=== PATIENT | male | born 2000 | race Caucasian/White ===

== ENCOUNTER 2023-07-12 11:43 | Outpatient (CLI) | payer BC, SELFPAY ==
[2023-07-12 18:21] LABS: Alanine Aminotransferase 58 U/L (6-50); Albumin Level 4.7 g/dL (3.5-5.1); Alkaline Phosphatase 49 U/L (38-126); Anion Gap 8 mmol/L (8-16); Aspartate Amino Transferase 64 U/L (17-59); Bilirubin,Total 0.6 mg/dL (0.2-1.3); Blood Urea Nitrogen 15 mg/dL (9-20); Calcium 9.6 mg/dL (8.4-10.2); Carbon Dioxide 29 mmol/L (22-30); Chloride 104 mmol/L (98-107); Cholesterol 179 mg/dL (0-200); Estimated Glomerular Filt Rate > 60; Glucose 95 mg/dL (65-110); HDL Direct 47 mg/dL; Potassium 4.2 mmol/L (3.4-5.0); Sodium 141 mmol/L (137-145); Triglycerides 117 mg/dL (<150)
[2023-07-12 18:32] LABS: LDL Cholesterol Direct 104 mg/dL
== END 2023-07-12 11:44 | disposition home or self-care (01) ==
PROVIDERS: PCP Family Medicine; Visit Provider Family Medicine
DX: E78.2 Mixed hyperlipidemia (principal); Z13.228 Encounter for screening for other metabolic disorders
CPT/HCPCS: 36415; 80053; 80061

== ENCOUNTER 2023-09-23 13:34 | Outpatient (CLI) | payer BC, SELFPAY ==
[2023-09-23 18:58] LABS: Alanine Aminotransferase 46 U/L (6-50); Aspartate Amino Transferase 56 U/L (17-59)
== END 2023-09-23 13:35 | disposition home or self-care (01) ==
LOC: ANHGOSHLAB 13:36
PROVIDERS: PCP Family Medicine; Visit Provider Family Medicine
DX: R74.01 Elevation of levels of liver transaminase levels (principal)
CPT/HCPCS: 36415; 84450; 84460

== ENCOUNTER 2023-12-04 10:08 | Emergency (ER) | payer BC, SELFPAY ==
--- NOTE | ~2023-12-04 | XR_ITS ---
EXAMINATION: XR foot RT min 3V DATE: 12/04/2023 10:35 INDICATION: Lateral right foot pain TECHNIQUE: Dorsoplantar, two oblique and lateral views of the right foot were obtained. COMPARISON: None. FINDINGS: Nondisplaced transverse fracture across the proximal metaphyseal region of the right fifth metatarsal . At its closest approach medially the fracture line extends to within 11 mm the proximal articular s urface. Alignment remains essentially anatomic. No other fractures identified. Joint spaces are masoud l. IMPRESSION: 1. Nondisplaced extra-articular fracture at the proximal metaphyseal region of the right fifth metata rsal. Reviewed, dictated and finalized at location A. IMPRESSION: 1. Nondisplaced extra-articular fracture at the proximal metaphyseal region of the right fifth metatarsal.
[2023-12-04 10:16] VITALS: BP 133/57; PULSE 88; RESP 20; TEMP 36.7; O2SAT 98
--- NOTE | 2023-12-04 10:19 | ED.LOWEXIN ---
HPI - Extremity Injury (Lower) General Chief Complaint: Extremity Injury, Lower Stated Complaint: INJURED R FOOT Time Seen by Provider: 12/04/23 10:28 Source: patient and RN notes reviewed Mode of arrival: ambulatory Limitations: no limitations History of Present Illness HPI Narrative: 22-year-old male presents concern with right foot pain. Reports he was ?running around? last night with his friends and then had lateral foot pain. Reports there is of ?bump? on the side of his foot and he has more difficulty bending his toes. He reports some pain at rest, worsening pain with weight-bearing MD complaint: foot injury Related Data Home Medications Medication Instructions Recorded Confirmed omega 5-[id number]-[id number]-fish oil 1,000 mg 1 cap PO DAILY 03/05/21 12/04/23 (120 mg-180 mg) capsule (Fish Oil) Allergies Allergy/AdvReac Type Severity Reaction Status Date / Time No Known Allergies Allergy Verified 12/04/23 10:20 Review of Systems Review of Systems: CONSTITUTIONAL: Denies malaise, chills, sweats, or fever. SKIN: Denies rash or itching, open skin, laceration, abrasion, redness, warmth, swelling. MUSCULOSKELETAL: Reports right foot pain NEUROLOGIC: Denies numbness, weakness All systems reviewed & are unremarkable except as noted in HPI and below PMFSH Past Medical History Medical History Hyperlipidemia Family History Family History Father Hypertension Heart disease Grandparent Lymphoma Esophageal cancer Heart disease Diabetes mellitus Grandparent Diabetes mellitus Heart disease Social History Social History Social History: caffeine intake- 400mg daily Smoking status: Never smoker Alcohol intake: current Drinks per week: 3 Alcohol use details: Beer Substance use: never Lack of Transportation: No Lack of Food: Never True Current Housing: I Have Housing Concerned About Future Housing: No Difficulty Paying Gas/Electric Bills: No Difficulty Paying for Meds: No Currently Unemployed: No Education: High School Diploma/GED Difficulty w/ Childcare or Family Care: No Living arrangements: with family Occupation/Education: student Gender identity (if verbalized by the patient): Male Comments At time of signature, agree with nursing past medical, surgical, social and family history. There is no relevant family history pertinent to the presenting complaint Exam Narrative: GENERAL: Well-appearing, well-nourished, and in no acute distress. HEAD: Normocephalic, atraumatic. EYES: PERRLA, conjunctivae clear NECK: Supple. CHEST: Speaks in full sentences. No respiratory distress. HEART: Regular rate and rhythm. Normal and equal peripheral pulses. EXTREMITIES: Right ankle, foot, digits have grossly normal strength and sensation, grossly normal range of motion. No edema or ecchymosis. Normal sensation with sensitivity to light touch and pain. Lateral foot tenderness. Bulge to lateral. No open wounds, no skin tenting, no devitalized tissue or atrophy, no trophic changes, alignment normal, nearby joints and structures intact. Distal pulses palpable and equal bilaterally, skin warm, dry, pink. Capillary refill less than 3 seconds. SKIN: Warm, dry, no rash. NEURO: Alert and oriented x3. PSYCH: Normal mood and affect Course Course Emergency Course: Patient is aware of diagnosis, understands and agrees to treatment plan. Anticipatory guidance given. Patient agrees to follow-up as directed and is aware of reasons to seek care at the emergency department. Portions of this record may have been created with voice recognition software Level of Care: Express Care Visit Vital Signs Vital signs: Vital Signs Temperature 98.1 F 12/04/23 10:16 Pulse Rate 88 12/04/23 10:16 Respiratory Rate 20 12/03
== END 2023-12-04 11:00 | disposition home or self-care (01) ==
PROVIDERS: Emergency Provider Nurse Practitioner; PCP Family Medicine
DX: S92.351A Displaced fracture of fifth metatarsal bone, right foot, initial encounter for closed fracture (principal); X58.XXXA Exposure to other specified factors, initial encounter; Y93.02 Activity, running; E78.5 Hyperlipidemia, unspecified
CPT/HCPCS: 73630; 99214; G0463